=== PATIENT | female | born 1950 | race Caucasian/White ===

== ENCOUNTER 2020-06-30 19:02 | Emergency (ER) | payer MEDICARE, SELFPAY ==
--- NOTE | 2020-06-30 19:04 | ECG_ITS ---
[facility] Test Date: 2020-06-30 Pat Name: Augusta Dukes Department: Room: Gender: Female Jack Setter: : 1950 Requested By: Vinny Tompkins Order Number: [id number] Sandra MD: Sunshine Davies M.D. Measurements Intervals [place] Rate: 75 P: 35 ND: 190 QRS: -5 QRSD: 88 T: 8 QT: 398 QTc: 446 Interpretive Statements SINUS RHYTHM No previous ECG available for comparison Electronically Signed On 06-30-2020 21:09:34 CDT by Sunshine Davies M.D. [id number]
--- NOTE | 2020-06-30 19:04 | XRR_ITS ---
PROCEDURE INFORMATION: Exam: XR Chest, 1 View Exam date and time: 06/30/2020 7:30 PM Age: 69 years old Clinical indication: Chest pain; Additional info: Cp TECHNIQUE: Imaging protocol: XR of the chest Views: 1 view. COMPARISON: No relevant prior studies available. FINDINGS: Lungs: Unremarkable. No consolidation. Pleural space: Unremarkable. No pleural effusion. No pneumothorax. Heart/Mediastinum: Unremarkable. No cardiomegaly. Bones/joints: Unremarkable. XR/XR chest 1V portable [id number] IMPRESSION: No acute findings.
[2020-06-30 19:32] VITALS: BP 150/95; PULSE 82; RESP 14; TEMP 37.1; O2SAT 95; BMI 34.5
[2020-06-30 20:41] LABS: Basophils # 0.1 10^3/uL (0.0-0.1); Basophils % 0.5 %; Eosinophils # 0.1 10^3/uL (0.0-0.8); Eosinophils % 1.3 %; Hematocrit 48.1 % (37.0-47.0); Hemoglobin 15.6 g/dL (11.5-15.3); Lymphocytes # 2.1 10^3/uL (0.8-4.8); Lymphocytes % 19.3 %; Mean Corpuscular HGB Conc 32.4 g/dL (30.0-36.0); Mean Corpuscular Hemoglobin 29.3 pg (28.0-34.0); Mean Corpuscular Volume 90.4 fL (81-99); Mean Platelet Volume 11.1 fL (7.4-10.4); Monocytes # 0.7 10^3/uL (0.2-0.9); Monocytes % 5.9 %; Neutrophils # 8.06 10^3/uL (1.8-7.7); Neutrophils % 72.7 %; Nucleated Red Blood Cells % 0 %; Platelet Count 301 10^3/cmm (130-400); Red Blood Count 5.32 10^6/uL (4.1-5.3); Red Cell Distribution Width 13.2 % (12.1-15.1); White Blood Count 11.1 10^3/uL (4.0-10.0)
--- NOTE | 2020-06-30 20:54 | W.ED.CHESTPA ---
HPI - Chest Pain General: Chief Complaint: Chest Pain Stated Complaint: cp, referred by urgent care Time Seen by Provider: 06/30/20 20:02 History of Present Illness: HPI narrative: This patient is a 69-year-old female who presents today with an episode of chest pain. Started around 5:00 this afternoon. She said it went on for maybe an hour and then resolved. She took herself to urgent care and was sent to the ER for evaluation. The pain is completely gone now and she feels fine. She is concerned because she has a strong family history of heart problems. Her sister and her cousin both had serious heart attacks in their 60s. She also said the provider at urgent care told her it might be her gallbladder. She does still have her gallbladder but is never had any problems with it. MD complaint: chest pain Onset (ago): hour(s) (2) Timing of current episode: constant and now resolved Prior episodes: No Onset: during rest Pain location: left chest Pain radiation: back Relieving factors: nothing Exacerbating factors: nothing Associated symptoms: Deny abdominal pain, dyspnea, fever(s), nausea or vomiting Review of Systems General: Reports: 10 or more systems reviewed and unremarkable except in HPI and below Const: Denies: fever(s), chills, fatigue or malaise Eyes: Denies: change in vision ENMT: Denies: odynophagia Card: Denies: chest pain or swelling of feet/ankles Resp: Denies: dyspnea, productive cough or non-productive cough GI: Denies: abdominal pain, nausea or vomiting : Denies: flank pain or difficulty voiding Musc: Denies: neck pain or back pain Skin/Breast: Denies: rash Neuro: Denies: headache(s), numbness in extremities or weakness in extremities Jun/Lymph: Denies: easy bruising or easy bleeding PFS ED PFSH: Social History (Updated 06/30/20 @ 18:37 by Brenna Garcia LPN) Smoking and tobacco status: never smoked Physical Exam Const: COMMON NORMALS: no acute distress, patient oriented x3, no limitations and alert GENERAL APPEARANCE: cooperative and comfortable HENMT: HEAD & SCALP: normal to inspection FACE & SINUS: normal facial exam Eye: GENERAL EYE: appearance normal, both eyes and all related structures Neck/C-Spine: COMMON NORMALS: supple, no meningeal signs and no JVD Chest: COMMONS NORMALS: normal inspection of the chest Resp: COMMON NORMALS: normal respiratory effort, No use of accessory muscles and clear to auscultation bilaterally AUSCULTATION: clear to auscultation bilaterally Cardio: COMMON NORMALS: no JVD, regular rate, regular rhythm and No murmurs present (Cardio) RATE: regular rate RHYTHM: regular rhythm GI: COMMON NORMALS: Normal to inspection, nondistended, normoactive bowel sounds present, Soft to palpation and non-tender INSPECTION: Yes normal to inspection AUSCULTATION: Yes normoactive bowel sounds PALPATION: Yes Soft to palpation Back/Pelvis: COMMON NORMALS: thoracic and lumbar spine normal to inspection Extremity: COMMON NORMALS: normal to inspection Neuro: COMMON NORMALS: patient oriented x3, moves all extremities, no focal motor deficits and no sensory deficits noted SENSORIUM/ORIENTATION: Yes alert MENINGEAL SIGNS: Yes no meningeal signs Psych: COMMON NORMALS: mental status grossly normal, cooperative and normal affect Skin: COMMON NORMALS: no rashes or lesions noted and turgor normal GENERAL SKIN EXAM: no rashes or lesions noted and turgor normal Course ED course: Chest pain-free in the department. EKG and troponins are negative twice. Her LFTs are slightly up as is her white count and if ordered an ultrasound to look at her gallbladder. Reevaluation(s): Reevaluation #1: Is remained pain-free in the ER. No Teran sign on ultrasound. She does have stones in upper limits of normal common bile duct. No wall thickening. No fever. We discussed return precautions and I also recommended that she follow-up with your primary care doctor for her concerns about her heart. Everything today looks fine. Vital Signs: Vital signs: Vital Signs Temperature 98.7 F 06/30/20 19:32 Pulse Rate 75 06/30/20 22:37 Respiratory Rate 18 06/30/20 22:37 Blood Pressure 155/74 06/30/20 22:37 Pulse Oximetry 94 06/30/20 22:37 MDM - Chest Pain Lab Data: Labs: Lab Results 06/30/20 06/30/20 06/30/20 Range/Units 20:19 20:19 20:19 WBC 11.1 H (4.0-10.0) 10^3/ uL RBC 5.32 H (4.1-5.3) 10^6/u L Hgb 15.6 H (11.5-15.3) g/dL Hct 48.1 H (37.0-47.0) % MCV 90.4 (81-99) fL MCH 29.3 (28.0-34.0) pg MCHC 32.4 (30.0-36.0) g/dL RDW 13.2 (12.1-15.1) % Plt Count 301 (130-400) 10^3/c mm MPV 11.1 H (7.4-10.4) fL Neut % (Auto) 72.7 % Lymph % (Auto) 19.3 % Quay % (Auto) 5.9 % Eos % (Auto) 1.3 % Baso % (Auto) 0.5 % Neut # (Auto) 8.06 H (1.8-7.7) 10^3/u L Lymph # (Auto) 2.1 (0.8-4.8) 10^3/u L Quay # (Auto) 0.7 (0.2-0.9) 10^3/u L Eos # (Auto) 0.1 (0.0-0.8) 10^3/u L Baso # (Auto) 0.1 (0.0-0.1) 10^3/u L Nucleated RBC % (a uto) 0 % Nucleated RBCs # 0.0 /100WBC Sodium 138 (136-145) mmol/L Potassium 4.1 (3.5-5.1) mmol/L Chloride 101 (98-107) mmol/L Carbon Dioxide 24 (22-29) mmol/L Anion Gap 17.1 (5-19) BUN 8 (8-23) mg/dL Creatinine 0.6 (0.5-0.9) mg/dL GFR Calculation 99.7 (90-130) mL/min Glucose 113 (65-115) mg/dL Calculated Osmolal ity 285 (285-295) mOsm/k g Calcium 10.3 (8.5-10.5) mg/dL Total Bilirubin 0.6 (0.15-1.2) mg/dL AST 121 H (0-32) U/L ALT 85 H (0-33) U/L Alkaline Phosphata se 98 (35-105) IU/L Troponin T Baselin e 6 (0-10) ng/L Troponin T 120 Min wainwright (0-10) ng/L Delta Troponin T (0-10) ABS# Total Protein 7.4 (6.6-8.7) g/dL Albumin 4.6 (3.5-5.2) g/dL Globulin 2.8 (1.3-4.6) g/dL 10/20/20 Range/Units 21:18 WBC (4.0-10.0) 10^3/ uL RBC (4.1-5.3) 10^6/u L Hgb (11.5-15.3) g/dL Hct (37.0-47.0) % MCV (81-99) fL MCH (28.0-34.0) pg MCHC (30.0-36.0) g/dL RDW (12.1-15.1) % Plt Count (130-400) 10^3/c mm MPV (7.4-10.4) fL Neut % (Auto) % Lymph % (Auto) % Quay % (Auto) % Eos % (Auto) % Baso % (Auto) % Neut # (Auto) (1.8-7.7) 10^3/u L Lymph # (Auto) (0.8-4.8) 10^3/u L Quay # (Auto) (0.2-0.9) 10^3/u L Eos # (Auto) (0.0-0.8) 10^3/u L Baso # (Auto) (0.0-0.1) 10^3/u L Nucleated RBC % (a uto) % Nucleated RBCs # /100WBC Sodium (136-145) mmol/L Potassium (3.5-5.1) mmol/L Chloride (98-107) mmol/L Carbon Dioxide (22-29) mmol/L Anion Gap (5-19) BUN (8-23) mg/dL Creatinine (0.5-0.9) mg/dL GFR Calculation (90-130) mL/min Glucose (65-115) mg/dL Calculated Osmolal ity (285-295) mOsm/k g Calcium (8.5-10.5) mg/dL Total Bilirubin (0.15-1.2) mg/dL AST (0-32) U/L ALT (0-33) U/L Alkaline Phosphata se (35-105) IU/L Troponin T Baselin e (0-10) ng/L Troponin T 120 Min wainwright 6.00 (0-10) ng/L Delta Troponin T 0 (0-10) ABS# Total Protein (6.6-8.7) g/dL Albumin (3.5-5.2) g/dL Globulin (1.3-4.6) g/dL Discharge Plan Discharge Patient Disposition: Home Clinical Impression: Biliary colic Chest pain Qualifiers: Chest pain type: unspecified Qualified Code(s): R07.9 - Chest pain, unspecified Condition: Stable Prescriptions: No Action No Known Home Medications RF: 0 Discharge Orders: Discharge Order (Routine); Ordered 06/30/20 Ordered By: Farnaz Hinds Referrals: Lester Peck MD [Physician] - 1-3 days (gallstones) Discharge Diet: Low Fat Discharge Activity: Resume usual activity Patient Instructions: Chest Pain (ED), Cholecystitis (ED) Activity Restrictions/Additional Instructions: Stick to a low-fat and bland diet until you seek further care for your gallbladder. Return to the ER if severe pain that will not go away, fever, persistent vomiting, any other new or concerning symptoms. The test for your heart today were normal but you should talk to your doctor about having further evaluation of your heart given your family history. Discharge Date/Time: 06/30/20 22:38 Coding Level of Care Code ED Missile Control Pilot for Lottie Fwd Exam Comprehensive
--- NOTE | 2020-06-30 21:04 | ECG_ITS ---
[facility] Test Date: 2020-06-30 Pat Name: Augusta Dukes Department: Room: Gender: Female Acid Retort Operator: DAREK CARMONAB: 1950 Requested By: Vinny Tompkins Order Number: [id number] Sandra MD: Sunshine Davies M.D. Measurements Intervals [place] Rate: 82 P: 39 DE: 163 QRS: -11 QRSD: 88 T: 13 QT: 379 QTc: 443 Interpretive Statements SINUS RHYTHM No previous ECG available for comparison Electronically Signed On 07-01-2020 12:58:13 CDT by uSnshine Davies M.D. [id number]
[2020-06-30 21:12] LABS: Alanine Aminotransferase 85 U/L (0-33); Albumin Level 4.6 g/dL (3.5-5.2); Alkaline Phosphatase 98 IU/L (35-105); Anion Gap 17.1 (5-19); Aspartate Amino Transferase 121 U/L (0-32); Blood Urea Nitrogen 8 mg/dL (8-23); Calcium 10.3 mg/dL (8.5-10.5); Carbon Dioxide 24 mmol/L (22-29); Chloride 101 mmol/L (98-107); Globulin 2.8 g/dL (1.3-4.6); Glomerular Filtration Rate 99.7 mL/min (90-130); Glucose 113 mg/dL (65-115); Osmolality Calculated 285 mOsm/kg (285-295); Potassium 4.1 mmol/L (3.5-5.1); Sodium 138 mmol/L (136-145); Total Bilirubin 0.6 mg/dL (0.15-1.2); Total Protein 7.4 g/dL (6.6-8.7)
[2020-06-30 21:13] LABS: Troponin(5th) Baseline 6 ng/L (0-10)
--- NOTE | 2020-06-30 21:22 | US_ITS ---
WS: [id number] ULTRASOUND ABDOMEN LIMITED CLINICAL INFORMATION: RUQ pain COMPARISON: None. FINDINGS: Liver Size: Normal. Craniocaudal length: 15.5 cm. Echogenicity: Normal. Surface nodularity: None. Mass (size and location): None. Bile ducts Intrahepatic ducts: Normal. Common bile duct diameter: 0.8 cm. Gallbladder Cholelithiasis Gallstones: Present Gallbladder sludge: None. Gallbladder wall thickening: None. Pericholecystic fluid: None. Sonographic Teran sign: Absent. Pancreas Normal as visualized. Right kidney: Normal. Hydronephrosis: None. Size: 11.1 cm x 4.3 cm x 4.3 cm. Abdominal aorta and IVC Visualized portions are normal. Ascites: None. US/US gall bladder [id number] IMPRESSION: 1. Liver is normal. No intrahepatic biliary ductal dilatation. 2. Cholelithiasis. No gallbladder wall thickening or pericholecystic fluid. 3. Prominent common bile duct measuring 7.7 mm. 4. Normal right kidney.
[2020-06-30 21:57] LABS: Troponin 5 2HR Delta 0 ABS# (0-10)
[2020-06-30 22:37] VITALS: BP 155/74; PULSE 75; RESP 18; O2SAT 94
== END 2020-06-30 22:38 | disposition home or self-care (01) ==
PROVIDERS: Emergency Medicine; Emergency Provider Emergency Medicine
DX: R07.9 Chest pain, unspecified (principal); K80.50 Calculus of bile duct without cholangitis or cholecystitis without obstruction
CPT/HCPCS: 12345; 71045; 76705; 80053; 84484; 85025; 93005; 99283

== ENCOUNTER → 2021-11-17 11:00 | Outpatient (BNVA) | payer MEDICARE, SELFPAY | PROVIDERS: Visit Provider Nurse Practitioner Family | DX: Z20.822 Contact with and (suspected) exposure to COVID-19 (principal) | CPT/HCPCS: 87635 ==

== ENCOUNTER 2022-08-09 13:51 | Outpatient (CLI) | payer MEDICARE, SELFPAY ==
--- NOTE | 2022-08-09 13:58 | MM_ITS ---
WS: [email or web address] BILATERAL 3D TOMOSYNTHESIS DIGITAL SCREENING MAMMOGRAM WITH CAD CLINICAL INFORMATION: SCREENING HISTORY: Screening mammogram. No current complaints. COMPARISON: TECHNIQUE: Bilateral CC and MLO views. FINDINGS: Fatty-replaced breasts bilaterally. No suspicious focal mass, asymmetry, calcifications, or java technical architect ural distortion. No evidence of malignancy. Vascular calcification. A few incidental punctate calcifi cations. MM/[place] [id number] IMPRESSION: BI-RADS: 2-Benign FOLLOW UP: 1 Year Follow-up Recommend return to annual screening mammography.
== END 2022-08-09 13:52 | disposition home or self-care (01) ==
LOC: RAD 13:52
PROVIDERS: Visit Provider Family Medicine
DX: Z12.31 Encounter for screening mammogram for malignant neoplasm of breast (principal)
CPT/HCPCS: 77063; 77067

== ENCOUNTER 2022-08-10 09:42 | Outpatient (CLI) | payer MEDICARE, SELFPAY ==
--- NOTE | 2022-08-10 | US_ITS ---
WS: [email or web address] ULTRASOUND ABDOMEN LIMITED CLINICAL INFORMATION: ELEVATED LFT'S COMPARISON: June 30, 2020 FINDINGS: Liver Size: Normal. Craniocaudal length: 15.3 cm. Echogenicity: Coarse with increased echogenicity Surface nodularity: None. Mass (size and location): None. Bile ducts Intrahepatic ducts: Normal. Common bile duct diameter: 0.7 cm. Gallbladder Cholelithiasis Gallstones: Present Gallbladder sludge: None. Gallbladder wall thickening: None. Pericholecystic fluid: None. Sonographic Teran sign: Absent. Pancreas Normal as visualized. Right kidney: Normal. Hydronephrosis: None. Size: 9.6 cm x 5.9 cm x 4.1 cm. Abdominal aorta and IVC Visualized portions are normal. Ascites: None. US/US abdomen limited [id number] IMPRESSION: 1. Coarse hepatic echotexture likely due to fatty infiltration. Recommend lonnie elation with liver function tests. 2. Shadowing cholelithiasis appears nonmobile. No gallbladder wall thickening or pericholecystic fluid. 3. Prominent common bile duct measuring 7 mm unchanged since 2019. MRCP could be used in further evaluation to exclude choledocholithiasis. 4. No hydronephrosis in RIGHT kidney.
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
== END 2022-08-10 09:43 | disposition home or self-care (01) ==
LOC: RAD 09:45
PROVIDERS: PCP Family Medicine; Visit Provider Family Medicine
DX: Z78.0 Asymptomatic menopausal state (principal); R94.5 Abnormal results of liver function studies; K80.20 Calculus of gallbladder without cholecystitis without obstruction; M85.88 Other specified disorders of bone density and structure, other site
CPT/HCPCS: 76705; 77080

== ENCOUNTER 2023-08-10 09:17 | Outpatient (RCR) | payer MEDICARE, SELFPAY | END 2023-08-10 23:59 | disposition home or self-care (01) | LOC: SPT 09:17 | PROVIDERS: PCP Family Medicine; Visit Provider Family Medicine | DX: M43.6 Torticollis (principal) | CPT/HCPCS: 97161 ==

== ENCOUNTER 2023-08-11 06:00 | Outpatient (RCR) | payer MEDICARE, SELFPAY | END 2023-09-10 23:59 | disposition home or self-care (01) | LOC: SPT 06:00 | PROVIDERS: PCP Family Medicine; Visit Provider Family Medicine | DX: M43.6 Torticollis (principal) | CPT/HCPCS: 97110 ==

== ENCOUNTER 2024-01-03 08:12 | Outpatient (CLI) | payer MEDICARE, SELFPAY ==
--- NOTE | 2024-01-03 08:25 | MM_ITS ---
WS: [email or web address] BILATERAL SCREENING DIGITAL TOMOSYNTHESIS MAMMOGRAM WITH CAD HISTORY: SCREENING COMPARISON: 08/09/2022, 08/22/2019 Bilateral CC and MLO views with tomosynthesis and synthetic mammography submitted. Computer aided det ection analyzed. Breast composition: There are scattered areas of fibroglandular density. No suspicious masses, microc alcifications or architectural distortion. Vascular calcifications. IMPRESSION: MM/[place] [id number] BI-RADS: 2-Benign FOLLOW UP: 1 Year Follow-up
== END 2024-01-03 08:13 | disposition home or self-care (01) ==
LOC: RAD 08:12
PROVIDERS: PCP Family Medicine; Visit Provider Family Medicine
DX: Z12.31 Encounter for screening mammogram for malignant neoplasm of breast (principal)
CPT/HCPCS: 77063; 77067

== ENCOUNTER 2024-02-01 11:49 | Outpatient (CLI) | payer MEDICARE, SELFPAY ==
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
== END 2024-02-01 11:50 | disposition home or self-care (01) ==
PROVIDERS: PCP Family Medicine; Visit Provider Family Medicine
DX: M43.6 Torticollis (principal); M99.61 Osseous and subluxation stenosis of intervertebral foramina of cervical region; M25.78 Osteophyte, vertebrae
CPT/HCPCS: 72050

== ENCOUNTER 2024-07-24 09:30 | Outpatient (CLI) | payer MEDICARE, SELFPAY ==
--- NOTE | 2024-07-24 09:38 | MR_ITS ---
WS: [email or web address] MRI CERVICAL SPINE NONCONTRAST TECHNIQUE: Sagittal T1, T2 and STIR imaging. Axial T2, gradient, and fiesta imaging. CLINICAL INFORMATION: TORTICOLLIS COMPARISON: None. FINDINGS: Moderate spondylitic changes. Disc osteophyte complexes with mild central canal stenosis C3-C6 C2-C3: Moderate RIGHT facet arthropathy. Mild RIGHT foraminal narrowing. Tiny central protrusion. C3-C4: Disc osteophyte complex with endplate ridging. Mild central canal stenosis with slight indenta tion of the cervical cord. Moderate RIGHT and mild LEFT bony foraminal narrowing. Mild facet arthropa thy. C4-C5: Disc osteophyte complex with mild central canal stenosis. Slight indentation on the cervical c ord. Moderate bilateral bony foraminal narrowing. Moderate facet arthropathy. C5-C6: Disc osteophyte complex with endplate ridging. Mild bilateral bony foraminal narrowing. Modera te facet arthropathy. Mild central canal stenosis. C6-C7: Disc osteophyte complex with slight contact of the cervical cord. Mild to moderate bilateral b enzo foraminal narrowing. Moderate facet arthropathy. C7-T1: Disc osteophyte ridging. Mild bilateral bony foraminal narrowing. Spinal canal is patent. Visualized brain stem structures: Normal. Prevertebral soft tissues: Normal. MR/MR cervical spin wo con* [id number] IMPRESSION: 1. Straightening of the normal upper cervical lordosis. Moderate spondylitic c hanges. 2. Mild central canal stenosis due to disc osteophyte complexes at C3-C4 C4-C5 C5-C6 and C6-C7. 3. Multilevel moderate bony foraminal narrowing worse at RIGHT C2-3, RIGHT C3- 4, bilateral C4-5, and bilateral C6-7. 4. Facet synovitis RIGHT C2-3 with a small amount of fluid and edema.
== END 2024-07-24 09:31 | disposition home or self-care (01) ==
LOC: RAD 09:32
PROVIDERS: PCP Family Medicine; Visit Provider Family Medicine
DX: M43.6 Torticollis (principal); M48.02 Spinal stenosis, cervical region; M65.98 Unspecified synovitis and tenosynovitis, other site
CPT/HCPCS: 72141

== ENCOUNTER 2024-08-29 12:20 | Emergency (ER) | payer MEDICARE, SELFPAY ==
[2024-08-29 12:30] VITALS: BP 152/91; PULSE 79; TEMP 36.4; O2SAT 99; BMI 26.5
--- NOTE | 2024-08-29 12:59 | ECG_ITS ---
[facility] Date: [facility]24[facility]29 Pat Name: Augusta Dukes Department: Room: Gender: Female Provider Network Analyst: : 1950 Requested By: Paco Brown Order Number: [id number] Sandra MD: Teresa Hanna M.D. Measurements Intervals [place] Rate: 75 P: -71 TX: 140 QRS: 4 QRSD: 93 T: 59 QT: 390 QTc: 436 Interpretive Statements Multifocal atrial rhythm LOW QRS VOLTAGE IN PRECORDIAL LEADS [QRS DEFLECTION < 1.0 mV IN CHEST LEADS] SEPTAL MYOCARDIAL INFARCTION , OF INDETERMINATE AGE [40+ ms Q WAVE IN V1/V2] Compared to ECG 06/30/2020 20:49:31 Junctional rhythm now present Low QRS voltage now present Myocardial infarct finding now present Sinus rhythm no longer present Electronically Signed On 08-29-2024 23:51:26 MEDIA THEORIST AND AUTHOR OF by Teresa Hanna M.D. [id number] f
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
[2024-08-29 14:02] VITALS: BP 121/71; PULSE 65; RESP 18; O2SAT 97
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
[2024-08-29] MEDS: lidocaine 5% Patch 1 PATCH TOPICAL (14:21)
[2024-08-29] MEDS: acetaminophen 325 mg Tablet 650 MG PO (14:21)
[2024-08-29 16:07] VITALS: BP 105/73; PULSE 65; O2SAT 98
== END 2024-08-29 16:07 | disposition home or self-care (01) ==
PROVIDERS: Emergency Provider Emergency Medicine; PCP Family Medicine
DX: S29.8XXA Other specified injuries of thorax, initial encounter (principal); S09.8XXA Other specified injuries of head, initial encounter; V89.2XXA Person injured in unspecified motor-vehicle accident, traffic, initial encounter
CPT/HCPCS: 70450; 71045; 93005; 99284

== ENCOUNTER → 2025-06-14 10:02 | Outpatient (BNVA) | payer MEDICARE, SELFPAY | PROVIDERS: PCP Family Medicine; Visit Provider Nurse Practitioner | DX: R39.9 Unspecified symptoms and signs involving the genitourinary system (principal); N30.01 Acute cystitis with hematuria | CPT/HCPCS: 81000; 87077; 87086; 87184 ==

== ENCOUNTER 2025-07-23 09:06 | Outpatient (CLI) | payer MEDICARE, SELFPAY ==
--- NOTE | 2025-07-23 09:14 | MM_ITS ---
WS: [id number] BILATERAL SCREENING DIGITAL TOMOSYNTHESIS MAMMOGRAM WITH CAD HISTORY: SCREENING COMPARISON: 01/03/2024, 08/09/2022 Bilateral CC and MLO views with tomosynthesis and synthetic mammography submitted. Computer aided detection analyzed. Breast composition: There are scattered areas of fibroglandular density. No suspicious masses, microcalcifications or architectural distortion. Benign calcifications in each breast. MM/MM scr BI tomosynthesis [id number] IMPRESSION: BI-RADS: 2 - Benign. FOLLOW UP: 1 Year Follow-up
== END 2025-07-23 09:07 | disposition home or self-care (01) ==
PROVIDERS: PCP Family Medicine; Visit Provider Nurse Practitioner Family
DX: Z12.31 Encounter for screening mammogram for malignant neoplasm of breast (principal); R92.323 Mammographic fibroglandular density, bilateral breasts; R92.1 Mammographic calcification found on diagnostic imaging of breast
CPT/HCPCS: 77063; 77067

== ENCOUNTER 2025-08-11 10:15 | Outpatient (CLI) | payer MEDICARE, SELFPAY ==
--- NOTE | 2025-08-11 10:25 | US_ITS ---
WS: [id number] ULTRASOUND SOFT TISSUES medial RIGHT foot HISTORY: LOCALIZED SWELLING,MASS LUMP, R LOWER LIMB COMPARISON: None available. TECHNIQUE: 2-D and color Doppler imaging is submitted. Ultrasound was performed in the area of interest along the medial RIGHT foot. There is a complex mass measuring 1.7 x 2.3 x 1.0 cm. This is a slightly lobulated mass with displacement of the adjacent soft tissues. No increased vascularity. US/US soft tissue/extremity [id number] IMPRESSION: Nonvascular hypoechoic mass along the medial RIGHT foot in the area of interest measures 1.7 x 2.3 x 1.0 cm. Most likely an atypical ganglion. Consider further evaluation by MRI of the RI GHT foot centered to the area of interest with and without contrast.
== END 2025-08-11 10:16 | disposition home or self-care (01) ==
LOC: RAD 10:16
PROVIDERS: PCP Family Medicine; Visit Provider Nurse Practitioner Family
DX: R22.41 Localized swelling, mass and lump, right lower limb (principal); M67.471 Ganglion, right ankle and foot
CPT/HCPCS: 76882

== ENCOUNTER → 2025-08-26 08:03 | Outpatient (BNVA) | payer MEDICARE, SELFPAY | PROVIDERS: PCP Family Medicine; Visit Provider Podiatrist Foot & Ankle Surgery | DX: M79.671 Pain in right foot (principal); M79.89 Other specified soft tissue disorders | CPT/HCPCS: 73630; 99204 ==